=== PATIENT | female | born 1980 | race Caucasian/White ===

== ENCOUNTER 2021-11-19 08:42 | Day surgery (SDC) | payer OTHER ==
[2021-11-10 16:55] VITALS: BMI 35.9
[2021-11-19] MEDS ORDERED: MIDAZOLAM HCL 2 MG/2 ML SINGLE DOSE VIAL ONE (09:00)
[2021-11-19] MEDS ORDERED: ROPIVACAINE HCL/PF 100 MG/20 ML VIAL ONE (09:00)
[2021-11-19] MEDS ORDERED: BUPIVACAINE HCL/PF 0.25% (2.5MG/ML) 10 ML VIAL ONE (10:35)
[2021-11-19] MEDS ORDERED: PROPOFOL 20 ML ONE ×2 (10:42)
[2021-11-19] MEDS ORDERED: DEXAMETHASONE SOD PHOSPHATE 4 MG/1 ML VIAL ONE ×2 (10:43→11:06)
[2021-11-19] MEDS ORDERED: ALBUTEROL SO4 HFA INHALER IH ONE (10:43)
[2021-11-19] MEDS ORDERED: KETOROLAC TROMETHAMINE 30 MG/1 ML VIAL ONE ×2 (10:43→11:06)
[2021-11-19] MEDS ORDERED: ceFAZolin SODIUM 1 GM VIAL ONE (10:43)
[2021-11-19] MEDS ORDERED: ONDANSETRON 4 MG/2 ML VIAL ONE ×2 (10:43→11:06)
[2021-11-19] MEDS ORDERED: LIDOCAINE HCL/PF 2% SDV 5ML VIAL ONE (11:06)
[2021-11-19] MEDS ORDERED: oxyCODONE HCL 5 MG TABLET PO PRN ×2 (12:24)
[2021-11-19 13:48] VITALS: BP 132/84; PULSE 83; TEMP 20
== END 2021-11-19 15:14 | disposition home or self-care (01) ==
LOC: FASU 08:42
PROVIDERS: ATTEND Orthopaedic Surgery
PROC: 0RBK4ZZ Excision of Left Shoulder Joint, Percutaneous Endoscopic Approach (ICD-10-PCS; principal; 2021-11-19 11:18)
DX: M75.112 Incomplete rotator cuff tear or rupture of left shoulder, not specified as traumatic (principal); M65.812 Other synovitis and tenosynovitis, left shoulder; M75.02 Adhesive capsulitis of left shoulder
CPT/HCPCS: 84703; 94760

== ENCOUNTER 2022-11-07 06:02 | Day surgery (SDC) | payer OTHER ==
[2022-11-02 15:24] VITALS: BMI 37.8
[2022-11-07] MEDS ORDERED: BUPIVACAINE HCL/EPINEPHRINE/PF 30 ML VIAL IJ ONE (08:00)
[2022-11-07] MEDS ORDERED: EPINEPHrine 1:1,000 1,000 MCG/ML ML ONE (08:00)
[2022-11-07] MEDS ORDERED: IBUPROFEN 400 MG TABLET (FP) PO PRN (08:10)
[2022-11-07] MEDS ORDERED: ACETAMINOPHEN 325 MG TABLET (FP) PO PRN (08:10)
[2022-11-07] MEDS ORDERED: MIDAZOLAM HCL 2 MG/2 ML SINGLE DOSE VIAL ONE (08:47)
[2022-11-07] MEDS ORDERED: DEXAMETHASONE SOD PHOSPHATE 10 MG/1 ML VIAL ONE (08:47)
[2022-11-07] MEDS ORDERED: ROPIVACAINE HCL 0.5% 30ML VIAL ONE (08:47)
[2022-11-07] MEDS ORDERED: ALBUTEROL SO4 HFA INHALER IH ONE (09:06)
[2022-11-07] MEDS ORDERED: ROCURONIUM BROMIDE 50 MG/5 ML SYRINGE ONE (09:06)
[2022-11-07] MEDS ORDERED: KETOROLAC TROMETHAMINE 30 MG/1 ML VIAL ONE (09:24)
[2022-11-07] MEDS ORDERED: DEXAMETHASONE SOD PHOSPHATE 4 MG/1 ML VIAL ONE (09:24)
[2022-11-07] MEDS ORDERED: ONDANSETRON 4 MG/2 ML VIAL ONE (09:24)
[2022-11-07] MEDS ORDERED: ceFAZolin SODIUM 1 GM VIAL ONE (09:24)
[2022-11-07] MEDS ORDERED: BUPIVACAINE HCL/PF 0.25% (2.5MG/ML) 10 ML VIAL IJ ONE (09:45)
[2022-11-07] MEDS ORDERED: VECURONIUM BROMIDE 10 MG/10 ML VIAL ONE (09:54)
[2022-11-07] MEDS ORDERED: GLYCOPYRROLATE 0.2 MG/1 ML VIAL ONE (10:55)
[2022-11-07] MEDS ORDERED: NEOSTIGMINE METHYLSULFATE 0.5 MG/1 ML - 10 ML MDV ONE (10:55)
[2022-11-07] MEDS ORDERED: oxyCODONE HCL 5 MG TABLET PO PRN ×2 (11:21)
[2022-11-07] MEDS ORDERED: ONDANSETRON 4 MG/2 ML VIAL IVPUSH PRN (11:21)
[2022-11-07] MEDS ORDERED: PROMETHAZINE HCL 25 MG/1 ML VIAL IVPUSH ONE (11:55)
[2022-11-07] MEDS ORDERED: PROMETHAZINE HCL 25 MG/1 ML VIAL ONE (11:56)
[2022-11-07 14:04] VITALS: BP 125/75; PULSE 92; RESP 20; TEMP 97.9
== END 2022-11-07 14:04 | disposition home or self-care (01) ==
LOC: FASU 06:02
PROVIDERS: ATTEND Orthopaedic Surgery
PROC: 0LS44ZZ Reposition Left Upper Arm Tendon, Percutaneous Endoscopic Approach (ICD-10-PCS; 2022-11-07)
PROC: 0RBK4ZZ Excision of Left Shoulder Joint, Percutaneous Endoscopic Approach (ICD-10-PCS; principal; 2022-11-07 09:44)
DX: S46.012D Strain of muscle(s) and tendon(s) of the rotator cuff of left shoulder, subsequent encounter (principal); X58.XXXD Exposure to other specified factors, subsequent encounter; M75.02 Adhesive capsulitis of left shoulder
CPT/HCPCS: 81025; 88304-TC; 94760; C1713; J1100

== ENCOUNTER 2024-11-08 04:00 | Day surgery (SDC) | payer OTHER ==
[2024-11-07 11:40] VITALS: BMI 31.5
[2024-11-08] MEDS ORDERED: LIDOCAINE HCL/PF 1% SDV 5ML VIAL ONE (07:16)
[2024-11-08] MEDS ORDERED: DEXAMETHASONE SOD PHOSPHATE 10 MG/1 ML VIAL ONE (07:16)
[2024-11-08] MEDS ORDERED: ACETAMINOPHEN 500 MG TABLET (FP) PO PRN (08:44)
[2024-11-08 13:11] VITALS: BP 117/69; PULSE 77; RESP 16; TEMP 97.6
== END 2024-11-08 13:44 | disposition home or self-care (01) ==
LOC: JASU-SURG 04:00
PROVIDERS: ATTEND Pain Medicine Pain Medicine
PROC: 3E0R3BZ Introduction of Anesthetic Agent into Spinal Canal, Percutaneous Approach (ICD-10-PCS; 2024-11-08)
PROC: 3E0R33Z Introduction of Anti-inflammatory into Spinal Canal, Percutaneous Approach (ICD-10-PCS; principal; 2024-11-08 12:46)
DX: M54.12 Radiculopathy, cervical region (principal)
CPT/HCPCS: 76000-TC-FY; 81025; J1100

== ENCOUNTER 2025-02-19 06:24 | Inpatient (IN) | payer OTHER ==
[2025-02-14 15:08] VITALS: BMI 30.4
[2025-02-19] MEDS: morphine SULFATE/PF 1 MG/2 ML (2cc Syringe - QUVA) ONE (08:06)
[2025-02-19] MEDS ORDERED: MIDAZOLAM HCL 2 MG/2 ML SINGLE DOSE VIAL ONE (08:07)
[2025-02-19] MEDS ORDERED: PROPOFOL 20 ML ONE ×2 (08:07→09:46)
[2025-02-19] MEDS ORDERED: ROCURONIUM BROMIDE 50 MG/5 ML SYRINGE ONE (08:08)
[2025-02-19] MEDS: CEFAZOLIN 2 GM/D5W 2 GM/50 ML ML IVPB ONE (08:15)
[2025-02-19] MEDS: ceFAZolin SODIUM 1 GM VIAL IVPB ONE (08:35)
[2025-02-19] MEDS ORDERED: IBUPROFEN 800 MG/8 ML IJ IVPB PRN (08:52)
[2025-02-19] MEDS ORDERED: SUGAMMADEX SODIUM 200 MG/2 ML VIAL ONE (08:57)
[2025-02-19] MEDS ORDERED: METOCLOPRAMIDE HCL INJECTION 10 MG/2 ML VIAL ONE (11:47)
[2025-02-19] MEDS: METOCLOPRAMIDE HCL INJECTION 10 MG/2 ML VIAL IVPUSH ONE (11:54)
[2025-02-19] MEDS: LACTATED RINGERS SOLUTION 1,000 ML IV SCH (12:45)
[2025-02-19 16:29] VITALS: RESP 18
[2025-02-19] MEDS ORDERED: CEFAZOLIN 2 GM/D5W 2 GM/50 ML ML IVPB SCH (18:00)
[2025-02-19] MEDS: CEFAZOLIN SODIUM 2 GM in DEXTROSE 5%-WATER 100 ML IVPB SCH (18:06)
[2025-02-19] MEDS ORDERED: ONDANSETRON 4 MG/2 ML VIAL IVPB PRN (19:30)
[2025-02-19] MEDS: IBUPROFEN 800 MG/8 ML IJ IVPB PRN (21:52)
[2025-02-19] MEDS: SENNOSIDES/DOCUSATE COMBO (SENNA PLUS) TABLET (UD) PO PRN (21:53)
[2025-02-19] MEDS: SIMETHICONE 80 MG TAB.CHEW (FP) PO PRN (21:53)
[2025-02-20 08:05] LABS: ABSOLUTE IMMATURE GRANULOCYTES 0.02 x10^3/uL (0.0-0.031); BASOPHILS # 0.02 x10^3/uL (0.01-0.08); EOSINOPHIL % 0.4 % (0.7-5.8); EOSINOPHILS # 0.04 x10^3/uL (0.04-0.36); HEMATOCRIT 31.5 % (34.1-44.9); HEMOGLOBIN 10.1 g/dL (11.2-15.7); MCHC 32.1 g/dl (32.2-35.5); MEAN CELL VOLUME 88.7 fl (79.4-94.8); MEAN PLT VOLUME 10.7 fl (9.4-12.3); MONOCYTE # 0.93 x10^3/uL (0.24-0.86); MONOCYTE % 9.4 % (4.7-12.5); PLATELET COUNT 208 x10^3/uL (182-369); RDW 14.3 % (12.2-17.1)
[2025-02-20] MEDS: FERROUS SO4 325 MG TABLET (FP) PO SCH (09:54)
[2025-02-20] MEDS ORDERED: BISACODYL 10 MG SUPP.RECT RC PRN (10:23)
[2025-02-20] MEDS: IBUPROFEN 600 MG TABLET (FP) PO PRN (11:12)
[2025-02-20] MEDS: oxyCODONE HCL 5 MG TABLET PO PRN ×2 (12:48→19:41)
[2025-02-20] MEDS: ACETAMINOPHEN 325 MG TABLET (FP) PO PRN (16:02)
[2025-02-21 12:34] VITALS: BP 105/66; PULSE 78; TEMP 97.9
== END 2025-02-21 12:10 | disposition home or self-care (01) | DRG 519 ==
LOC: J2C 06:24 → J3W 13:33
PROVIDERS: ADMIT Obstetrics & Gynecology; ATTEND Obstetrics & Gynecology
PROC: 0DNW0ZZ Release Peritoneum, Open Approach (ICD-10-PCS; 2025-02-19)
PROC: 0UT20ZZ Resection of Bilateral Ovaries, Open Approach (ICD-10-PCS; 2025-02-19)
PROC: 0UT70ZZ Resection of Bilateral Fallopian Tubes, Open Approach (ICD-10-PCS; 2025-02-19)
PROC: 0UT90ZZ Resection of Uterus, Open Approach (ICD-10-PCS; principal; 2025-02-19 08:00)
DX: D25.9 Leiomyoma of uterus, unspecified (principal); N83.291 Other ovarian cyst, right side; N92.0 Excessive and frequent menstruation with regular cycle; K66.0 Peritoneal adhesions (postprocedural) (postinfection)
CPT/HCPCS: 36415; 74177-TC; 76830-TC; 80053; 81003; 81025; 83690; 83735; 84703; 85025; 85610; 85730; 86850; 86900; 86901; 87086; 87491; 87591; 87661; 88307-TC; 94010; 94760; J0131; Q9967